=== PATIENT | female | born 1985 | race African-American/Black ===

== ENCOUNTER 2017-10-20 22:33 | Emergency (ER) | payer OTHER ==
[~2017-10-20] VITALS: Ht 172.7 cm; Wt 70.9 kg
[~2017-10-20 22:33] MED LIST: AUGMENTIN875 MG PO; BACTRIM,SEPT1 TABLET PO; CLINDAMYCIN HC150 MG PO; DIFLUCAN150 MG PO; FLAGYL500 MG PO; HYCODAN SYRUP480 ML PO; KEFLEX500 MG PO; METRO GEL 1%60 GM TP; METROGEL-VAGINA70 GM VG; NAPROSYN500 MG PO; NOHOMEMEDS; NORCO 5/3251 TABLET PO; PRENATAL TABLE1 EAC3 PO; PROBIOTIC1 EAC1 PO; ULTRAM50 MG PO; VIBRAMYCIN100 MG PO
[2017-10-20 23:41] LABS: HEMATOCRIT 38.7 % (36.0-46.0); HEMOGLOBIN 13.1 G/DL (11.9-15.5); MCHC 33.9 G/DL (30.0-36.0); MCV 91.5 FL (83-99); PLATELET COUNT 212 K/uL (156-360); RBC DIS.WIDTH-CV 13.9 % (11.8-14.6); RBC DIS.WIDTH-SD 47.2 % (39-53); RED BLOOD COUNT 4.23 M/uL (3.80-5.20); WHITE BLOOD COUNT 6.6 K/uL (4.1-10.2)
[2017-10-20 23:54] LABS: CHLORIDE 108 mEq/L (99-109); POTASSIUM 3.9 mEq/L (3.7-5.4); SODIUM 141 mEq/L (136-147)
[2017-10-20 23:56] LABS: GLUCOSE 110 mg/dL (70-99)
[2017-10-20 23:59] LABS: SERUM ETHYL ALCOHOL < 10 mg/dL
[2017-10-21] LABS: CREATININE 0.8 mg/dL (0.6-1.3); GFR ESTIMATE (CALCULATED) > 59 mL/min/
[2017-10-21 00:01] LABS: UREA NITROGEN (BUN) 17 mg/dL (9-23)
[2017-10-21 00:10] LABS: QUANTITATIVE HCG < 4.0 MIU/ML
[2017-10-21] MEDS ORDERED: FLEXERIL10 MG PO (01:12)
[2017-10-21] MEDS ORDERED: NORCO 5/3251 TABLET PO (01:12)
[2017-10-21 01:32] VITALS: BP 123/77
== END 2017-10-21 01:33 | disposition home or self-care (01) ==
LOC: EME → EDBD 22:33 → EME 10-21 01:33
PROVIDERS: Emergency Medicine
DX: S09.90XA Unspecified injury of head, initial encounter (principal); S43.401A Unspecified sprain of right shoulder joint, initial encounter; S16.1XXA Strain of muscle, fascia and tendon at neck level, initial encounter; V43.62XA Car passenger injured in collision with other type car in traffic accident, initial encounter; Y92.410 Unspecified street and highway as the place of occurrence of the external cause; J45.909 Unspecified asthma, uncomplicated; F17.200 Nicotine dependence, unspecified, uncomplicated; Z86.14 Personal history of Methicillin resistant Staphylococcus aureus infection; Z88.6 Allergy status to analgesic agent; Z88.1 Allergy status to other antibiotic agents
CPT/HCPCS: 70450; 71045; 72125; 73030; 80048; 84702; 85027; 99281; 99284; G0480